=== PATIENT | male | born 1960 | race Caucasian/White ===

== ENCOUNTER → 2019-07-01 | Outpatient (CLI) | payer OTHER ==
--- NOTE | 2019-07-01 12:25 | Diagnostic Imaging Report ---
INDICATION: Hypertension and palpitations. PA and lateral chest obtained at 11:13 a.m. and is compared to 12/21/2016. Heart and mediastinal silhouette are normal in appearance. The lungs are clear. There is no pneumothorax or pleural fluid. IMPRESSION: Negative chest. Dictated by: Dictated on workstation # [id number]
== END ==
LOC: RAD FS 11:29
PROVIDERS: ATTEND Nurse Practitioner Family
DX: I10 Essential (primary) hypertension (principal); R00.2 Palpitations
CPT/HCPCS: 71046

== ENCOUNTER 2019-08-08 15:06 | Emergency (ER) | payer OTHER ==
[~2019-08-08] VITALS: Ht 180 cm; Wt 120.4 kg
--- NOTE | 2019-08-08 15:34 | NUR ---
NOTIFIED OF BUSY ER WITH LONG WAIT TIME.
[2019-08-08 17:01] VITALS: BP 132/82
[2019-08-08 17:30] LABS: BILIRUBIN,URINE NEGATIVE (NEGATIVE); CLARITY,URINE CLEAR; COLOR,URINE YELLOW; GLUCOSE, URINE (UA) NEGATIVE (NEGATIVE); KETONES,URINE 1+ (NEGATIVE); LEUKOCYTE ESTERASE ,URINE NEGATIVE (NEGATIVE); NITRITE,URINE NEGATIVE (NEGATIVE); PROTEIN,URINE NEGATIVE (NEGATIVE)
[2019-08-08] MEDS ORDERED: NS IV 1000 ML 1,000 ML IV ONE (17:39)
[2019-08-08 17:42] LABS: BACTERIA,URINE NEGATIVE /HPF; WBC,URINE 0-2 /HPF
[2019-08-08 17:51] LABS: BASOPHILS % (AUTO) 0 % (0-10); EOSINOPHILS % (AUTO) 0 % (0-10); HEMATOCRIT 44 % (40-54); HEMOGLOBIN 14.6 G/DL (13.3-17.7); LYMPHOCYTES # (AUTO) 1.9 X 10^3 (1.0-4.0); LYMPHOCYTES % (AUTO) 16 % (12-44); MEAN CORPUSCULAR HEMOGLOBIN 29 PG (25-34); MEAN CORPUSCULAR HGB CONC 33 G/DL (32-36); MEAN CORPUSCULAR VOLUME 88 FL (80-99); MEAN PLATELET VOLUME 11.9 FL (7.4-10.4); MONOCYTES # (AUTO) 0.5 X 10^3 (0.0-1.0); MONOCYTES % (AUTO) 4 % (0-12); NEUTROPHILS # (AUTO) 9.7 X 10^3 (1.8-7.8); NEUTROPHILS % (AUTO) 80 % (42-75); PLATELET COUNT 238 10^3/uL (130-400); RED CELL DISTRIBUTION WIDTH 13.4 % (10.0-14.5); WHITE BLOOD COUNT 12.1 10^3/uL (4.3-11.0)
[2019-08-08] MEDS ORDERED: KETOROLAC 30 MG/ML VIAL IVP ONE (18:00)
[2019-08-08 18:08] LABS: ALANINE AMINOTRANSFERASE 28 U/L (0-55); ALBUMIN 4.7 GM/DL (3.2-4.5); ALKALINE PHOSPHATASE 53 U/L (40-136); BILIRUBIN,TOTAL 0.6 MG/DL (0.1-1.0); BUN/CREATININE RATIO 14; CALCIUM 9.4 MG/DL (8.5-10.1); CARBON DIOXIDE 24 MMOL/L (21-32); CHLORIDE 100 MMOL/L (98-107); CREATININE SERUM 0.99 MG/DL (0.60-1.30); GFR ESTIMATED > 60; GLUCOSE 185 MG/DL (70-105); POTASSIUM 3.9 MMOL/L (3.6-5.0); SODIUM 135 MMOL/L (135-145); TOTAL PROTEIN 7.9 GM/DL (6.4-8.2)
--- NOTE | 2019-08-08 18:33 | Diagnostic Imaging Report ---
PROCEDURE: CT urinary tract, rule out kidney stone. TECHNIQUE: Multiple contiguous axial images were obtained through the abdomen and pelvis without the use of intravenous contrast. Auto Exposure Controls were utilized during the CT exam to meet ALARA standards for radiation dose reduction. INDICATION: Left flank pain. FINDINGS: Unenhanced images of the liver and spleen reveal no focal abnormality. No gallbladder, pancreatic, or adrenal gland lesion is identified. There is no evidence of renal stone or hydronephrosis. No ureteric calculus or dilatation is identified. The appendix has a normal appearance. There is no free fluid within the abdomen or pelvis. Bladder is partially collapsed but otherwise unremarkable. Dystrophic calcifications are seen in the prostate gland. Lumbar spondylosis is present, most pronounced at the L5-S1 level. IMPRESSION: No evidence of acute abnormality within the abdomen or pelvis. In particular, there is no evidence of obstructive uropathy. Dictated by: Dictated on workstation # [id number]
--- NOTE | 2019-08-08 18:50 | ED Back Pain ---
General Chief Complaint: Back Problems Stated Complaint: LOWER LEFT BACK PAIN Nursing Triage Note: LEFT FLANK PAIN THAT RADIATES INTO ABD STARTING YESTERDAY. STATES HE HAS BEEN RUNNING A FEVER AND THINKS IT IS A KIDNEY STONE. Nursing Sepsis Screen: Possible Severe Sepsis Risk Source of Information: Patient Exam Limitations: No Limitations History of Present Illness Date Seen by Provider: Aug 08, 2019 Time Seen by Provider: 17:23 Initial Comments This 58-year-old gentleman presents to the emergency room with complaints of left-sided lower back pain. This seems to start in the lower lumbar spine and radiates around to the left abdomen. He wonders if this could be a kidney stone. He reports being seen in the clinic in [place] yesterday. X-rays were performed and he states they questioned a ureteral stone. He reports having some chills and sweats yesterday. He had a similar episode a week ago. Patient does report doing some lifting recently. Pain seems to be worse with lifting. Yesterday he bent down to crab picker some wood when the pain became much more intense. He reports urine stream is sometimes weak. He was started on prostate medication in [place]. The back sometimes hurts when he strains to urinate. He reports his present pain as 9/10. He last took pain medication at noon. Allergies and Home Medications Allergies Coded Allergies: No Known Drug Allergies (Unverified , 08/08/19) Home Medications Cyclobenzaprine HCl 10 Mg Tablet, 10 MG PO TID PRN for SPASMS Prescribed by: AMBROSIO CHENG on 08/08/191899 Prednisone 20 Mg Tab, 20 MG PO DAILY Prescribed by: AMBROSIO CHENG on 08/08/191899 Patient Home Medication List Home Medication List Reviewed: Yes Review of Systems Constitutional: see HPI EENTM: no symptoms reported Respiratory: no symptoms reported Cardiovascular: no symptoms reported Gastrointestinal: see HPI Genitourinary: see HPI Musculoskeletal: see HPI Skin: no symptoms reported Psychiatric/Neurological: See HPI Past [id number]-Spqjtn Hx Past Med/Social Hx: Reviewed and Corrections made Patient Social History Alcohol Use: Denies Use Recreational Drug Use: No Smoking Status: Never a Smoker 2nd Hand Smoke Exposure: No Recent Foreign Travel: No Contact w/Someone Who Travel: No Recent Infectious Disease Expo: No Recent Hopitalizations: No Physical Abuse: No Sexual Abuse: No Mistreated: No Fear: No Seasonal Allergies Seasonal Allergies: No Past Medical History Surgeries: Yes (polyps removed from colon) Respiratory: No Cardiac: Yes Hypertension Neurological: No Genitourinary: No Gastrointestinal: Yes Polyps Musculoskeletal: Yes Arthritis Endocrine: No HEENT: No Cancer: No Psychosocial: No Blood Disorders: No Physical Exam Vital Signs Vital Signs - First Documented 08/08/19 15:28 Temp 36.5 Pulse 94 Resp 16 B/P (MAP) 130/83 (99) Pulse Ox 98 O2 Delivery Room Air Capillary Refill : Less Than 3 Seconds Height, Weight, BMI Height: '" Weight: lbs. oz. 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, 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 as 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 Skin: Normal Color, Warm/Dry Progress/Results/Core Measures Results/Orders Lab Results Laboratory Tests Test 08/08/19 15:34 08/08/19 17:23 Range/Units Urine Color YELLOW Urine Clarity CLEAR Urine pH 6.0 5-9 Urine Specific Castell >=1.030 1.016-1.022 Urine Protein NEGATIVE NEGATIVE Urine Glucose (UA) NEGATIVE NEGATIVE Urine Ketones 1+ H NEGATIVE Urine Nitrite NEGATIVE NEGATIVE Urine Bilirubin NEGATIVE NEGATIVE Urine Urobilinogen 0.2 < = 1.0 MG/DL Urine Leukocyte Esterase NEGATIVE NEGATIVE Urine RBC (Auto) NEGATIVE NEGATIVE Urine RBC NONE /HPF Urine WBC 0-2 /HPF Urine Crystals NONE /LPF Urine Bacteria NEGATIVE /HPF Urine Casts NONE /LPF Urine Mucus MODERATE H /LPF Urine Culture Indicated NO White Blood Count 12.1 H 4.3-11.0 10^3/uL Red Blood Count 5.06 4.35-5.85 10^6/uL Hemoglobin 14.6 13.3-17.7 G/DL Hematocrit 44 40-54 % Mean Corpuscular Volume 88 80-99 FL Mean Corpuscular Hemoglobin 29 25-34 PG Mean Corpuscular Hemoglobin Concent 33 32-36 G/DL Red Cell Distribution Width 13.4 10.0-14.5 % Platelet Count 238 130-400 10^3/uL Mean Platelet Volume 11.9 H 7.4-10.4 FL Neutrophils (%) (Auto) 80 H 42-75 % Lymphocytes (%) (Auto) 16 12-44 % Monocytes (%) (Auto) 4 0-12 % Eosinophils (%) (Auto) 0 0-10 % Basophils (%) (Auto) 0 0-10 % Neutrophils # (Auto) 9.7 H 1.8-7.8 X 10^3 Lymphocytes # (Auto) 1.9 1.0-4.0 X 10^3 Monocytes # (Auto) 0.5 0.0-1.0 X 10^3 Eosinophils # (Auto) 0.0 0.0-0.3 10^3/uL Basophils # (Auto) 0.0 0.0-0.1 10^3/uL Sodium Level 135 135-145 MMOL/L Potassium Level 3.9 3.6-5.0 MMOL/L Chloride Level 100 98-107 MMOL/L Carbon Dioxide Level 24 21-32 MMOL/L Anion Gap 11 5-14 MMOL/L Blood Urea Nitrogen 14 7-18 MG/DL Creatinine 0.99 0.60-1.30 MG/DL Estimat Glomerular Filtration Rate > 60 BUN/Creatinine Ratio 14 Glucose Level 185 H 70-105 MG/DL Calcium Level 9.4 8.5-10.1 MG/DL Corrected Calcium 8.5-10.1 MG/DL Total Bilirubin 0.6 0.1-1.0 MG/DL Aspartate Amino Transf (AST/SGOT) 15 5-34 U/L Alanine Aminotransferase (ALT/SGPT) 28 0-55 U/L Alkaline Phosphatase 53 40-136 U/L Total Protein 7.9 6.4-8.2 GM/DL Albumin 4.7 H 3.2-4.5 GM/DL Lipase 9 8-78 U/L My Orders Orders - AMBROSIO POE MD Cbc With Automated Diff (08/08/19 17:39) Comprehensive Metabolic Panel (08/08/19 17:39) Ns Iv 1000 Ml (Sodium Chloride 0.9%) (08/08/19 17:39) Ketorolac Injection (Toradol Injection) (08/08/19 18:00) Ct Abd/Pelvis Wo(Kidney Stone) (08/08/19 17:59) Lipase (08/08/19 18:19) Prednisone Tablet (Deltasone Tablet) (08/08/19 19:00) Medications Given in ED Current Medications Medications Dose Ordered Sig/Gina Route Start Time Stop Time Status Last Admin Dose Admin Prednisone 40 mg ONCE ONCE PO 08/08/19 19:00 08/08/19 19:01 DC 08/08/19 19:07 40 MG Vital Signs/I&O 08/08/19 08/08/19 08/08/19 15:28 17:01 19:09 Temp 36.5 36.7 36.7 Pulse 94 98 98 Resp 16 16 B/P (MAP) 130/83 (99) 132/82 (99) 128/78 (99) Pulse Ox 98 98 99 O2 Delivery Room Air Room Air 08/09/19 00:00 Intake Total 1000 ml Balance 1000 ml Blood Pressure Mean: 99 Progress Progress Note : Progress Note Toradol was given and successfully treated the pain. I discussed risks and benefits of CT scan. Patient would really like to have the CT done. CT was obtained and demonstrated no ureteral stone or other abdominal pathology. There was spondylosis noted at L5-S1. Patient is being treated with steroid therapy Diagnostic Imaging Diagonstic Imaging: CT Plain Films/CT/US/NM/MRI: abdomen, pelvis Comments CT abdomen and pelvis viewed by me and report reviewed. See report below: NAME: LUISA TARIQ [facility] REC#: [id number] PT STATUS: REG ER : 1960 PHYSICIAN: AMBROSIO POE MD ADMIT DATE: 08/08/19/ER Draft Date of Exam:08/08/19 CT ABD/PELVIS WO(KIDNEY STONE) PROCEDURE: CT urinary tract, rule out kidney stone. TECHNIQUE: Multiple contiguous axial images were obtained through the abdomen and pelvis without the use of intravenous contrast. Auto Exposure Controls were utilized during the CT exam to meet ALARA standards for radiation dose reduction. INDICATION: Left flank pain. FINDINGS: Unenhanced images of the liver and spleen reveal no focal abnormality. No gallbladder, pancreatic, or adrenal gland lesion is identified. There is no evidence of renal stone or hydronephrosis. No ureteric calculus or dilatation is identified. The appendix has a normal appearance. There is no free fluid within the abdomen or pelvis. Bladder is partially collapsed but otherwise unremarkable. Dystrophic calcifications are seen in the prostate gland. Lumbar spondylosis is present, most pronounced at the L5-S1 level. IMPRESSION: No evidence of acute abnormality within the abdomen or pelvis. In particular, there is no evidence of obstructive uropathy. Dictated on workstation # [id number] Dict: 08/08/19 1828 Trans: 08/08/19 1832 [id number] Interpreted by: JUANY HERRERA MD Departure Impression Primary Impression: Low back pain Qualified Codes: M54.5 - Low back pain Additional Impressions: Left sided abdominal pain of unknown cause Spondylosis Disposition: HOME, SELF-CARE Condition: Improved Departure-Patient Inst. Decision time for Depature: 18:57 Referrals: [facility] (PCP) Primary Care Physician MARGARETH JUDGE APRN (Family) Primary Care Physician Patient Instructions: Spondylolysis Add. Discharge Instructions: Drink plenty of clear liquids to stay well-hydrated. For pain you may take ibuprofen up to 600 mg every 6 hours as needed. You may c ombine with Tylenol (acetaminophen) up to 1000 mg every 6 hours as needed. Take ibuprofen with food or milk to avoid stomach irritation. Follow-up with your primary care provider if you have persistent abdominal pain. Use the prednisone steroids as prescribed. Also take these with food or milk to avoid stomach irritation and take early in the day to avoid sleep disturbance. Return to the emergency room if you have worsening symptoms. All discharge instructions reviewed with patient and/or family. Voiced understanding. Scripts Cyclobenzaprine HCl (Cyclobenzaprine HCl) 10 Mg Tablet 10 MG PO TID PRN for SPASMS, #10 TAB Prov: AMBROSIO POE MD 08/08/19 Prednisone (Prednisone) 20 Mg Tab 20 MG PO DAILY, #4 TAB 0 Refills Prov: AMBROSIO POE MD 08/08/19 Copy Copies To 1: NORRIS GOMEZ MD, JOSHUA T MD Aug 08, 2019 18:50
[2019-08-08] MEDS ORDERED: predniSONE 20 MG TAB PO ONE (19:00)
[2019-08-08] MEDS ORDERED: PRD20T PO (19:00)
[2019-08-08] MEDS ORDERED: CYCL10TA9 PO (19:00)
--- NOTE | 2019-08-08 19:01 | NUR ---
Artem rosa in ED - 08/08/19 at 1903 by [id number] Report given to BUNNY Peguero at this time.
[2019-08-08 19:09] VITALS: BP 128/78
== END 2019-08-08 19:11 | disposition home or self-care (01) ==
LOC: EDUNIT# 15:06 → ER 15:07
DX: M54.5 Low back pain (principal); R10.9 Unspecified abdominal pain; M47.9 Spondylosis, unspecified; I10 Essential (primary) hypertension; Z86.010 Personal history of colon polyps
CPT/HCPCS: 36415; 74176; 80053; 81000; 83690; 85025; 96361; 96374

== ENCOUNTER → 2019-08-08 | Outpatient (CLI) | payer OTHER ==
[~2019-08-08] MED LIST: CYCL10TA9 PO; PRD20T PO
--- NOTE | 2019-08-08 11:24 | Diagnostic Imaging Report ---
INDICATION: Left flank pain and difficulty urinating. TIME OF EXAM: 11:06 a.m. FINDINGS: The bowel gas pattern is unremarkable. No definite radiopaque renal calculi are seen. There are some calcific densities in the left pelvis. This most likely represent phleboliths, although distal ureteric calculi cannot be entirely excluded. IMPRESSION: Left pelvic calcifications, indeterminate. If there is concern for urinary tract calculi, CT of the urinary tract could be performed for further evaluation. Dictated by: Dictated on workstation # [id number]
== END ==
LOC: RAD FS 11:00
PROVIDERS: ATTEND Nurse Practitioner
DX: M61.452 Other calcification of muscle, left thigh (principal); R10.9 Unspecified abdominal pain; R39.198 Other difficulties with micturition
CPT/HCPCS: 74018

== ENCOUNTER → 2020-08-21 | Outpatient (CLI) | payer MEDICAID, OTHER | LOC: CARD 13:54 | PROVIDERS: ATTEND Nurse Practitioner Family | DX: R94.31 Abnormal electrocardiogram [ECG] [EKG] (principal); I51.7 Cardiomegaly | CPT/HCPCS: 93306 ==